=== PATIENT | male | born 1995 | race Caucasian/White ===

== ENCOUNTER 2018-02-20 09:36 | Emergency (ER) | payer SELFPAY, BC | END 2018-02-20 11:38 | disposition home or self-care (01) | LOC: M ED 09:36 | DX: S40.862A Insect bite (nonvenomous) of left upper arm, initial encounter (principal); W57.XXXA Bitten or stung by nonvenomous insect and other nonvenomous arthropods, initial encounter; Y92.89 Other specified places as the place of occurrence of the external cause; F17.220 Nicotine dependence, chewing tobacco, uncomplicated | CPT/HCPCS: 99283 ==

== ENCOUNTER 2019-05-31 19:49 | Emergency (ER) | payer OTHER, SELFPAY ==
[~2019-05-31] VITALS: Ht 167.6 cm; Wt 66.6 kg
[2019-05-31] MEDS ORDERED: OMEP-218 (20:02)
[2019-05-31 21:28] LABS: BASO # 0.1 10^3/uL (0.0-0.2); BASO % 1.2 % (0.0-1.0); EOS # 0.4 10^3/uL (0.0-0.5); EOS % 3.7 % (0.0-3.0); HEMATOCRIT 44.8 % (42.0-52.0); HEMOGLOBIN 15.3 g/dl (13.5-17.5); LYMPH # 2.2 10^3/uL (1.5-5.0); LYMPH % 23.4 % (24.0-44.0); MEAN CORPUSCULAR HEMOGLOBIN 29.9 pg (27.0-33.0); MEAN CORPUSCULAR HGB CONC 34.2 g/dl (32.0-36.5); MEAN CORPUSCULAR VOLUME 87.5 fl (80.0-96.0); MONO # 0.8 10^3/uL (0.0-0.8); MONO % 8.7 % (0.0-5.0); NEUTROPHILS # 5.9 10^3/uL (1.5-8.5); NEUTROPHILS % 62.8 % (36.0-66.0); PLATELET COUNT, AUTOMATED 265 10^3/uL (150-450); RED BLOOD COUNT 5.12 10^6/uL (4.30-6.10); WHITE BLOOD COUNT 9.4 10^3/uL (4.0-10.0)
[2019-05-31 22:07] LABS: MONO SCRN NEGATIVE (NEGATIVE)
[2019-05-31 22:21] VITALS: BP 122/77
== END 2019-05-31 22:23 | disposition home or self-care (01) ==
LOC: M ED 19:49
DX: J00 Acute nasopharyngitis [common cold] (principal); J02.9 Acute pharyngitis, unspecified; J06.9 Acute upper respiratory infection, unspecified; K02.9 Dental caries, unspecified; J03.90 Acute tonsillitis, unspecified; J35.1 Hypertrophy of tonsils; K21.9 Gastro-esophageal reflux disease without esophagitis; F17.200 Nicotine dependence, unspecified, uncomplicated; Z79.899 Other long term (current) drug therapy

== ENCOUNTER 2020-03-20 11:13 | Emergency (ER) | payer OTHER ==
[~2020-03-20] VITALS: Ht 167.6 cm; Wt 64.5 kg
[~2020-03-20 11:13] MED LIST: OMEP-218
[2020-03-20] MEDS ORDERED: CETI-24 (11:19)
[2020-03-20] MEDS ORDERED: FAMOTIDINE INJ 20MG/2ML VIAL (S0028 PER 1) IVP ONE (12:00)
[2020-03-20] MEDS ORDERED: NS 1,000 ML IV ONE (12:00)
[2020-03-20] MEDS ORDERED: diphenhydrAMINE 50MG/ML VIAL (J1200) IV ONE (12:00)
[2020-03-20] MEDS ORDERED: methylPREDNISolone 125MG 2ML VIAL IV ONE (12:00)
[2020-03-20 14:21] VITALS: BP 135/75
== END 2020-03-20 14:33 | disposition home or self-care (01) ==
LOC: M ED 11:13
DX: T63.441A Toxic effect of venom of bees, accidental (unintentional), initial encounter (principal); F17.200 Nicotine dependence, unspecified, uncomplicated; K21.9 Gastro-esophageal reflux disease without esophagitis
CPT/HCPCS: 93041; 94760; 96361; 96374; 96375; 99284; J1200; J2930

== ENCOUNTER 2021-01-24 17:11 | Emergency (ER) | payer OTHER ==
[~2021-01-24] VITALS: Ht 167.6 cm; Wt 64.9 kg
[~2021-01-24 17:11] MED LIST changes: +CETI-24
[2021-01-24] MEDS ORDERED: diphenhydrAMINE 50MG/ML VIAL (J1200) IM ONE (19:30)
[2021-01-24 19:38] VITALS: BP 127/80
== END 2021-01-24 19:39 | disposition home or self-care (01) ==
LOC: M ED 17:11
DX: T63.441A Toxic effect of venom of bees, accidental (unintentional), initial encounter (principal); Y92.9 Unspecified place or not applicable; Y93.9 Activity, unspecified; K21.9 Gastro-esophageal reflux disease without esophagitis; J30.89 Other allergic rhinitis; F17.200 Nicotine dependence, unspecified, uncomplicated; Z79.899 Other long term (current) drug therapy
CPT/HCPCS: 96372; 99283; J1200

== ENCOUNTER 2022-03-16 17:17 | Emergency (ER) | payer OTHER ==
[~2022-03-16] VITALS: Ht 167.6 cm; Wt 60.6 kg
[~2022-03-16 17:17] MED LIST changes: +OMEP-173; -OMEP-218
[2022-03-16 17:18] VITALS: BP 134/77
[2022-03-16] MEDS ORDERED: DERMABOND TOPICAL SKIN ADHESIVE TOP ONE (20:55)
[2022-03-16] MEDS ORDERED: LIDOCAINE 1% MDV 20ML VIAL SC ONE (21:25)
[2022-03-16] MEDS ORDERED: BACITRACIN OINTMENT 30GM TUBE TOP STA (22:01)
== END 2022-03-16 22:25 | disposition home or self-care (01) ==
LOC: M ED 17:17
DX: S01.81XA Laceration without foreign body of other part of head, initial encounter (principal); Y92.099 Unspecified place in other non-institutional residence as the place of occurrence of the external cause; F17.200 Nicotine dependence, unspecified, uncomplicated; Z79.899 Other long term (current) drug therapy